=== PATIENT | male | born 1945 | race Hispanic/Latino ===

== ENCOUNTER 2019-01-17 11:45 | Day surgery (SDC) | payer OTHER, MEDICARE ==
[~2019-01-17 11:45] MED LIST: IOPIDINE ONE; MYDRIACYL ONE; NEOFRIN ONE
[2019-01-17] MEDS ORDERED: IOPIDINE OS ONE (11:54)
[2019-01-17] MEDS ORDERED: MYDRIACYL OS ONE ×2 (11:54)
[2019-01-17 12:51] VITALS: BP 114/58
[2019-01-17] MEDS ORDERED: NEOFRIN OS ONE ×2 (13:36)
== END 2019-01-17 13:09 | disposition home or self-care (01) ==
LOC: OR 11:45
PROVIDERS: ATTEND Specialist
DX: H26.492 Other secondary cataract, left eye (principal); E78.00 Pure hypercholesterolemia, unspecified; I10 Essential (primary) hypertension; M06.9 Rheumatoid arthritis, unspecified; Z88.2 Allergy status to sulfonamides; Z79.899 Other long term (current) drug therapy; Z87.891 Personal history of nicotine dependence; Z98.41 Cataract extraction status, right eye; Z98.42 Cataract extraction status, left eye; Z98.890 Other specified postprocedural states; Z95.0 Presence of cardiac pacemaker; Z85.89 Personal history of malignant neoplasm of other organs and systems; Z86.2 Personal history of diseases of the blood and blood-forming organs and certain disorders involving the immune mechanism